=== PATIENT | female | born 1970 | race Caucasian/White ===

== ENCOUNTER 2016-09-28 17:03 | Emergency (ER) | payer BC ==
[~2016-09-28] VITALS: Ht 162.6 cm; Wt 116.0 kg
[2016-09-28 17:04] VITALS: BP 159/89; PULSE 110; RESP 20; TEMP 99; O2SAT 99
[2016-09-28] MEDS ORDERED: CEPH500C PO (19:11)
--- NOTE | 2016-09-28 19:16 | PD ---
HPI Chief Complaint: ENT Complaint Time Seen by Provider: 19:13 Travel History International Travel<30 days: No Contact w/Intl Traveler<30days: No Traveled to known affect area: No History of Present Illness HPI 46-year-old white female presents to emergency department with a tender lump behind her right ear for the last few days. She states that she is been picking at a lesion on the base of her scalp as well as using Q-tips in her ear. She states that she had a subjective fever earlier this morning. She has had no cold symptoms. No runny nose, cough or congestion. No sore throat. Symptoms are mild. No alleviating factors. PFSH Past Medical History Narrative Medical Anxiety, depression, hypertension Tetanus Vaccination: < 5 Years Past Surgical History Surgical History: No Previous Surgery Social History Alcohol Use: No Tobacco Use: No Allergies-Medications (Allergen,Severity, Reaction): Coded Allergies: Penicillin (Verified Allergy, Severe, Rash, 09/28/16) Reported Meds & Prescriptions Reported Meds & Active Scripts Active Cephalexin 500 Mg Cap 500 Mg PO Q6H Review of Systems Except as stated in HPI: all other systems reviewed are Neg Physical Exam Narrative GENERAL: Well-developed, well-nourished in no acute distress. Nontoxic appearing. HEAD: Normocephalic, atraumatic. Patient has a small follicular lesion to the base of her scalp. She has tender right posterior auricular adenopathy. There is a small follicular lesion within the ear canals well. EYES: Pupils equal round and reactive. Extraocular motions intact. No scleral icterus. No injection or drainage. ENT: TMs clear without erythema. The external auditory canals clear. There is no exudate or erythema in the canal. Nose: clear . Posterior pharynx is pink and moist. No tonsillar edema or exudate. Uvula midline. Airway patent. NECK: Trachea midline.Supple, nontender, moves head freely. No central bony tenderness or spasm. CARDIOVASCULAR: Regular rate and rhythm without murmurs, gallops, or rubs. RESPIRATORY: Clear to auscultation. Breath sounds equal bilaterally. No wheezes , rales, or rhonchi. GASTROINTESTINAL: Abdomen soft, non-tender, nondistended. No hepato-splenomegaly , or palpable masses. No guarding. EXTREMITIES: No clubbing, cyanosis, or edema. No joint tenderness, effusion, or edema noted. BACK: Nontender without deformity or crepitance. No flank tenderness. Data Data Last Documented VS Vital Signs Date Time Temp Pulse Resp B/P Pulse Ox O2 Delivery O2 Flow Rate FiO2 09/28/16 17:04 99.0 110 20 159/89 99 Room Air MDM Medical Decision Making Medical Screen Exam Complete: Yes Emergency Medical Condition: Yes Medical Record Reviewed: Yes Differential Diagnosis MDM: High Differential diagnoses: Abscess, folliculitis, cellulitis, lymphangitis, abrasion, contact dermatitis Narrative Course This is folliculitis Diagnosis Primary Impression: Folliculitis Patient Instructions: General Instructions Additional Instructions: Rest. Elevation. keep clean and dry. Warm compresses. Stop picking your skin. Stop using Q-tips. Daily wound care with soap, water and Neosporin. Three Advil every 6 hours. Cephalexin. Follow-up with a primary care doctor in one week. Return to the ER for any problems. Med/Other Pt SpecificInfo: Prescription(s) given Scripts Cephalexin 500 Mg Bbd505 Mg PO Q6H #40 CAP Prov:Thalia Taylor DO 09/28/16 Disposition: 01 DISCHARGE HOME Condition: Stable Jerson Dominguez Sep 28, 2016 19:16
[2016-09-28] MEDS ORDERED: DIFL150T PO (19:31)
== END 2016-09-28 19:48 | disposition home or self-care (01) ==
LOC: NEPK 17:03
DX: L73.9 Follicular disorder, unspecified (principal); F41.9 Anxiety disorder, unspecified; F32.9 Major depressive disorder, single episode, unspecified; I10 Essential (primary) hypertension; Z79.899 Other long term (current) drug therapy; Z88.0 Allergy status to penicillin
CPT/HCPCS: 99284